=== PATIENT | male | born 1975 | race Caucasian/White ===

== ENCOUNTER 2018-02-05 13:36 | Emergency (ER) | payer MEDICAID ==
[~2018-02-05] VITALS: Ht 167.6 cm; Wt 72.6 kg
[2018-02-05 13:40] VITALS: Ht 167.6 cm; Wt 72.6 kg
[2018-02-05 15:05] LABS: BASOPHIL % 0.4 % (0-2); PLATELET COUNT 189 x10^3mcL (130-400); RED CELL DISTRIBUTION WIDTH 13.9 % (11.5-14.5)
[2018-02-05 15:30] LABS: ALBUMIN 3.8 g/dL (3.4-5.0); ALT/SGPT 26 U/L (16-63); BILIRUBIN TOTAL 0.45 mg/dL (0.20-1.00); CALCIUM 8.9 mg/dL (8.5-10.1); CREATININE SERUM 0.7 mg/dL (0.7-1.3); GFR1 > 60 mL/min
[2018-02-05 15:44] LABS: ALKALINE PHOSPHATASE 89 U/L (46-116); AST/SGOT 20 U/L (15-37); CARBON DIOXIDE 29.8 mmol/L (21-32); CHLORIDE SERUM 103 mmol/L (98-107); GLUCOSE SERUM 108 mg/dL (74-106); POTASSIUM SERUM 3.8 mmol/L (3.5-5.1); SODIUM SERUM 140 mmol/L (136-145); TOTAL PROTEIN, SERUM 8.3 g/dL (6.4-8.2)
[2018-02-05 16:24] VITALS: BP 111/70
== END 2018-02-05 16:24 | disposition home or self-care (01) ==
LOC: ED 13:36
PROVIDERS: Emergency Medicine
DX: R56.9 Unspecified convulsions (principal)
CPT/HCPCS: 36415